=== PATIENT | female | born 1970 | race Caucasian/White ===

== ENCOUNTER → 2016-11-25 | Outpatient (CLI) | payer BC ==
[~2016-11-25] MED LIST: CALC750C21 CHEW; METH500T PO; OXYC1TAB63 PO; PREN1TAB30 PO; Z.0.BCPILL; ZANTTAB PO
== END ==
LOC: HPND 07:47
PROVIDERS: ATTEND Obstetrics & Gynecology
DX: O09.522 Supervision of elderly multigravida, second trimester (principal); O09.812 Supervision of pregnancy resulting from assisted reproductive technology, second trimester; O44.01 Complete placenta previa NOS or without hemorrhage, first trimester; O44.02 Complete placenta previa NOS or without hemorrhage, second trimester; Z3A.22 22 weeks gestation of pregnancy
CPT/HCPCS: 76816; 76817; 76825; 76827; 93325

== ENCOUNTER → 2016-12-23 | Outpatient (CLI) | payer BC | LOC: HPND 07:51 | PROVIDERS: ATTEND Obstetrics & Gynecology | DX: O09.522 Supervision of elderly multigravida, second trimester (principal); O44.02 Complete placenta previa NOS or without hemorrhage, second trimester; O09.812 Supervision of pregnancy resulting from assisted reproductive technology, second trimester | CPT/HCPCS: 76816; 76817 ==

== ENCOUNTER → 2017-01-22 | Outpatient (CLI) | payer BC | LOC: HPND 14:17 | PROVIDERS: ATTEND Obstetrics & Gynecology | DX: O09.522 Supervision of elderly multigravida, second trimester (principal); O10.912 Unspecified pre-existing hypertension complicating pregnancy, second trimester; O09.812 Supervision of pregnancy resulting from assisted reproductive technology, second trimester | CPT/HCPCS: 76816 ==

== ENCOUNTER 2017-02-19 16:14 | Inpatient (IN) | payer BC ==
[2017-03-07] MEDS ORDERED: ZANTTAB PO (11:39)
[2017-03-07] MEDS ORDERED: PREN1TAB30 PO (11:39)
[2017-03-07] MEDS ORDERED: METH500T PO (11:39)
[2017-03-07] MEDS ORDERED: CALC750C21 CHEW (11:40)
[2017-03-19 14:36] VITALS: BP 120/75; PULSE 69; TEMP 97.5
[2017-03-20] MEDS ORDERED: CITRIC ACID-SODIUM CITRATE LIQ 30 ML UDC PO SCH (06:15)
[2017-03-20] MEDS ORDERED: LACTATED RINGER'S 1000 ML IV SCH (06:15)
[2017-03-20] MEDS ORDERED: ceFAZolin 2 GM PREMIX 50 ML IV SCH (06:15)
[2017-03-20] MEDS ORDERED: LACTATED RINGER'S 1000 ML IV ONE (06:15)
[2017-03-20 06:33] VITALS: TEMP 98.1
[2017-03-20 06:34] VITALS: RESP 18
[2017-03-20 06:54] LABS: AUTOMATED NEUTROPHIL # 5.5 TH/MM3 (1.8-7.7); BASOPHIL # 0.1 TH/MM3 (0-0.2); BASOPHIL % 0.7 % (0.0-2.0); EOSINOPHIL # 0.1 TH/MM3 (0-0.4); EOSINOPHIL % 1.2 % (0.0-4.0); HEMATOCRIT 35.9 % (35.0-46.0); HEMO FLAGS DIFF FINAL; LYMPH % 25.3 % (9.0-44.0); LYMPHOCYTE # 2.2 TH/MM3 (1.0-4.8); MEAN CELL VOLUME 90.5 FL (80.0-100.0); MEAN CORPUSCULAR HEMOGLOBIN 31.2 PG (27.0-34.0); MEAN CORPUSCULAR HGB CONC 34.5 % (32.0-36.0); MONO % 8.8 % (0.0-8.0); PLATELET COUNT 263 TH/MM3 (150-450); RED BLOOD COUNT 3.97 MIL/MM3 (4.00-5.30); RED CELL DISTRIBUTION WIDTH 14.3 % (11.6-17.2); WHITE BLOOD COUNT 8.6 TH/MM3 (4.0-11.0)
[2017-03-20] MEDS ORDERED: OXYTOCIN 10 UNIT/ML AMP ONE (07:00)
[2017-03-20] MEDS ORDERED: ONDANSETRON HCL 4 MG/2 ML VIAL ONE (07:12)
[2017-03-20] MEDS ORDERED: MORPHINE SULFATE PF 5 MG/10 ML VIAL ONE (07:12)
[2017-03-20] MEDS ORDERED: ePHEDrine/NS 25 MG/5 ML SYR ONE (07:12)
[2017-03-20] MEDS ORDERED: ACETAMINOPHEN 1000 MG/100 ML VIAL IV ONE (07:13)
--- NOTE | 2017-03-20 07:18 | MH ---
cc: JUSTIN BOLANOS DATE OF ADMISSION: 03/20/2017 ADMISSION DIAGNOSES 1. Term . 2. Advanced terminal age. 3. Status post multiple myomectomies. HISTORY OF PRESENT ILLNESS The patient is a 46-year-old white female para 0-0-2-0 with an EDC of 03/27/2017 by known in vitro fertilization dates. She is now admitted for primary delivery. PAST MEDICAL HISTORY PREVIOUS SURGERY 1. In 1974 she had ureteral implant surgery. 2. She had robotic myomectomy multiple in 2014 by delivery by her infertility specialist. ALLERGIES SULFA. TRANSFUSIONS None. OBSTETRICAL HISTORY Two previous ETPs. SOCIAL HISTORY She is . Works for an [employer]. Alcohol, tobacco and drugs are none. PHYSICAL EXAMINATION GENERAL: A well-nourished, well-developed white female. VITAL SIGNS: Stable. HEENT: Exam is normal. CHEST: Clear. HEART: Regular rate. ABDOMEN: Gravid, nontender. EFW is 3600 grams. PELVIC: Cervix is closed and is normal. Placenta is posterior. ASSESSMENT As above. PLAN She is now admitted for primary . While in the office explained the procedures, the risks, benefits and complications and the patient would like to proceed. MD CARLIN Cameron/SSB /6:55 AM /7:01 AM
[2017-03-20 07:23] LABS: BACTERIA, URINE FEW /hpf; BLOOD, URINE NEG (NEG); COMMENT (UR) CULT NOT INDICATED; CULTURE IF INDICATED CULT NOT INDICATED; GLUCOSE,URINE NEG (NEG); KETONE, URINE NEG (NEG); MUCUS URINE FEW /lpf (OCC); NITRITE,URINE NEG (NEG); SQUAMOUS EPITHELIAL CELL URINE 1 /hpf (0-5); URINE COLOR YELLOW (YELLW/STRAW)
[2017-03-20] MEDS ORDERED: EPIDURAL-DIPHENHYDRAMINE HCL 50 MG CAP PO PRN (07:30)
[2017-03-20] MEDS ORDERED: EPIDURAL-NO SYSTEMIC NARCOTICS PRN (07:30)
[2017-03-20] MEDS ORDERED: EPIDURAL-NALOXONE HCL 0.4 MG/ML AMP IV PRN (07:30)
[2017-03-20] MEDS ORDERED: EPIDURAL-DIPHENHYDRAMINE HCL 50 MG/ML VIAL IV PUSH PRN (07:30)
[2017-03-20] MEDS ORDERED: EPIDURAL-DO NOT ADMINISTER ANTICOAGULANTS PRN (07:30)
[2017-03-20] MEDS ORDERED: ONDANSETRON HCL 4 MG/2 ML VIAL IVP PRN (07:45)
[2017-03-20] MEDS ORDERED: SODIUM CHLORIDE 0.9% FLUSH 10 ML FLUSH IV FLUSH PRN (07:45)
[2017-03-20] MEDS ORDERED: SIMETHICONE 80 MG CHEWABLE TAB PO PRN (07:45)
[2017-03-20] MEDS ORDERED: KETOROLAC TROMETHAMINE 30 MG/ML (IVP) VIAL IV PUSH PRN (07:45)
[2017-03-20] MEDS ORDERED: DOCUSATE SODIUM 50 MG/SENNA 8.6 MG TAB PO PRN (07:45)
[2017-03-20] MEDS ORDERED: KETOROLAC TROMETHAMINE 60 MG/2 ML (IM) VIAL IM PRN (07:45)
[2017-03-20] MEDS ORDERED: oxyCODONE/ACETAMINOPHEN 5 MG/325 MG TAB PO PRN (07:45)
[2017-03-20] MEDS ORDERED: ZOLPIDEM TARTRATE 5 MG TAB PO PRN (07:45)
[2017-03-20] MEDS: ACETAMINOPHEN 1000 MG/100 ML VIAL IV SCH ×2 (08:00→16:20)
[2017-03-20] MEDS ORDERED: SODIUM CHLORIDE 0.9% FLUSH 10 ML FLUSH IV FLUSH SCH (09:00)
[2017-03-20] MEDS ORDERED: SODIUM CHLORIDE 0.9% FLUSH 5 ML FLUSH IV SCH (09:00)
[2017-03-20] MEDS ORDERED: OXYTOCIN 30 UNITS-500ML PREMIX 500 ML IV ONE (09:00)
[2017-03-20] MEDS: METHYLDOPA 500 MG TAB PO SCH (10:00)
[2017-03-20] MEDS ORDERED: MEASLES, MUMPS, RUBELLA VACCINE 0.5 ML VIAL SQ ONE (10:00)
[2017-03-20] MEDS ORDERED: LACTATED RINGER'S 1000 ML INJ 1,000 ML IV SCH (13:04)
[2017-03-20 14:10] VITALS: BP 120/75; PULSE 69; RESP 18; TEMP 97.5
[2017-03-20 17:33] VITALS: BP 120/78; PULSE 68; TEMP 97.6
[2017-03-20 17:35] VITALS: BP 120/78; PULSE 68; RESP 18; TEMP 97.6
[2017-03-20] MEDS ORDERED: OXYTOCIN 30 UNITS-500ML PREMIX 500 ML IV PRN (18:15)
[2017-03-21] MEDS: ACETAMINOPHEN 1000 MG/100 ML VIAL IV SCH (00:33)
[2017-03-21 04:51] LABS: AUTOMATED NEUTROPHIL # 8.4 TH/MM3 (1.8-7.7); BASOPHIL % 0.4 % (0.0-2.0); EOSINOPHIL # 0.1 TH/MM3 (0-0.4); HEMATOCRIT 32.6 % (35.0-46.0); HEMO FLAGS DIFF FINAL; LYMPH % 14.2 % (9.0-44.0); LYMPHOCYTE # 1.5 TH/MM3 (1.0-4.8); MEAN CELL VOLUME 90.3 FL (80.0-100.0); MEAN CORPUSCULAR HEMOGLOBIN 31.2 PG (27.0-34.0); MEAN CORPUSCULAR HGB CONC 34.5 % (32.0-36.0); MONO % 6.9 % (0.0-8.0); NEUT % 77.5 % (16.0-70.0); PLATELET COUNT 215 TH/MM3 (150-450); RED BLOOD COUNT 3.61 MIL/MM3 (4.00-5.30); RED CELL DISTRIBUTION WIDTH 14.1 % (11.6-17.2); WHITE BLOOD COUNT 10.8 TH/MM3 (4.0-11.0)
[2017-03-21 04:59] LABS: BICARBONATE 26.2 MEQ/L (21.0-32.0); POTASSIUM 4.1 MEQ/L (3.5-5.1)
[2017-03-21 07:20] VITALS: BP 134/83; PULSE 74; RESP 16; TEMP 97.9
[2017-03-21] MEDS: oxyCODONE/ACETAMINOPHEN 5 MG/325 MG TAB PO PRN ×3 (08:32→23:08)
[2017-03-21] MEDS: IBUPROFEN 600 MG TAB PO PRN ×3 (08:33→23:08)
[2017-03-21] MEDS: METHYLDOPA 500 MG TAB PO SCH (08:40)
--- NOTE | 2017-03-21 17:39 | MP ---
cc: JUSTIN BOLANOS DATE OF SURGERY 03/20/17 PREOPERATIVE DIAGNOSIS 1. Term 2. Advanced terminal age 46 with via IVF donor egg 3. Chronic hypertension 4. Gestational diabetes 5. Status post multiple myomectomies. POSTOPERATIVE DIAGNOSIS 1. Term 2. Advanced terminal age 46 with via IVF donor egg 3. Chronic hypertension 4. Gestational diabetes 5. Status post multiple myomectomies. 6. Delivered PROCEDURE Primary low transverse section. ANESTHESIA Spinal SURGEON George Bolanos MD ENVIRONMENTAL ENGINEERING TECHNICIAN Eulogio Montes, ESTIMATED BLOOD LOSS About 800 mL FLUIDS About two liters crystalloid. OBJECTIVE FINDINGS Following induction of adequate spinal anesthesia, the patient was prepped and draped supine on the operating table left lateral tilt position usual sterile fashion with the bladder being drained via Rodriguez catheterization. The abdomen was opened through a Pfannenstiel incision using a knife to excise her old scar. The fascia opened transversely, stripped from the muscles. Rectus muscle split in the midline and the peritoneum opened sharply without incident. The bladder flap was taken down sharply, retracted with Shaista blade. The lower uterine segment was incised transversely with a knife extended with blunt dissection with clear fluid. The baby was in LOT position. The vacuum applied to the occiput and gently lift the head through the uterine abdominal wound. Mouth was suctioned, cord clamped and cut and the baby passed to awaiting team. Viable vigorous male, Apgars nine and nine, weight 8 pounds even. Cord blood was sent for typing, placenta sent for donation and the uterine cavity cleaned with laps. Uterus was exteriorized. The wound closed in two layers running suture, first with running locking stitch of 0 Vicryl, second with running imbricating stitch of 0 Vicryl. Inspection of the uterus revealed multiple defects from the previous myomectomy repair. The tubes and ovaries were normal. Some filmy adhesions posteriorly were lysed with the Bovie. Uterus is now placed in cavity. Irrigation performed. No bleeding was evident and the bladder flap was closed with running stitch of 3-0 Vicryl. All lap structures removed. Counts were correct. The anterior peritoneum closed with running stitch of 2-0 Vicryl. The fascia closed with running locking stitch of 0 Vicryl, corner to midline and tied, subcu with running 3-0 Vicryl and the skin with running subcuticular 3-0 Monocryl. Dermabond applied. All counts correct and the patient was awaken and taken to recovery room in stable condition. MD CARLIN Cameron/ /8:20 AM /5:29 PM JUANCHO
[2017-03-22] MEDS: IBUPROFEN 600 MG TAB PO PRN ×3 (05:20→22:20)
[2017-03-22] MEDS: oxyCODONE/ACETAMINOPHEN 5 MG/325 MG TAB PO PRN ×5 (05:20→22:20)
[2017-03-22 08:13] VITALS: BP 150/94; PULSE 76; RESP 16; TEMP 98.4
[2017-03-22] MEDS ORDERED: DIPHTH/TETANUS/ACEL PERTUSSIS (BOOSTER) 0.5 ML VIAL/PFS IM ONE (09:00)
[2017-03-22] MEDS: METHYLDOPA 500 MG TAB PO SCH ×2 (09:36→20:33)
[2017-03-22 15:47] VITALS: BP 144/97
[2017-03-23] MEDS: oxyCODONE/ACETAMINOPHEN 5 MG/325 MG TAB PO PRN ×2 (05:16→09:24)
[2017-03-23] MEDS: IBUPROFEN 600 MG TAB PO PRN (05:16)
[2017-03-23] MEDS ORDERED: OXYC1TAB63 PO (08:23)
[2017-03-23] MEDS ORDERED: METH500T PO (08:23)
--- NOTE | 2017-03-23 08:23 | HHI.DCPOC ---
Discharge Care Plan Report Symptoms to Your Doctor -Temperate above 100.5 degrees -Redness, of incision or excessive or foul smelling drainage -Unusual pain or calf pain -Increased vaginal bleeding -Painful or difficulty urinating -Feelings of extreme sadness or anxiety after 2 weeks Goals to Promote Your Health * To prevent worsening of your condition and complications * To maintain your health at the optimal level Directions to Meet Your Goals Take your medications as prescribed Follow your dietary instruction Follow activity as directed Ensure plenty of rest for recovery Drink fluids for hydration Keep your appointments as scheduled Take your immunizations and boosters as scheduled If your symptoms worsen call your PCP, if no PCP go to Urgent Care Center or Emergency Room Smoking is Dangerous to Your Health. Avoid second hand smoke Call the 24-hour crisis hotline for domestic abuse at Sarkis Guerrero MD March 23, 2017 08:23
[2017-03-23 09:00] VITALS: BP 141/102; PULSE 86; RESP 18; TEMP 98.1
[2017-03-23] MEDS: METHYLDOPA 500 MG TAB PO SCH (09:23)
[2017-03-23 11:49] VITALS: BP 151/98
--- NOTE | 2017-03-24 08:29 | MD ---
cc: JUSTIN BOLANOS ADMISSION DATE: 03/20/2017 DISCHARGE DATE: 03/23/2017 ADMISSION DIAGNOSES 1. Term . 2. Advanced terminal age - 46. 3. Status post multiple myomectomies. 4. Chronic hypertension. 5. Gestational diabetes. DISCHARGE DIAGNOSES 1. Term . 2. Advanced terminal age - 46. 3. Status post multiple myomectomies. 4. Chronic hypertension. 5. Gestational diabetes. 6. Delivered. PROCEDURE Primary low transverse section on 03/20/2017. HISTORY OF PRESENT ILLNESS A 46-year-old white female, para 0-0-2-0, with an EDC of 03/27/2017 with dates known by IVF with a donor egg. Her past medical history is notable for a robotic myomectomy in 2014 necessitating the need for . Serious medical illnesses include chronic hypertension well controlled on Aldomet and gestational diabetes well-controlled with diet. Her course was benign. HOSPITAL COURSE She was admitted for primary on 03/20/2017 of a viable, vigorous male, Apgars 9 and 9, weight 8 pounds even. she did well and was discharged home in excellent condition on 03/23/2017. She was advised NPV, light activity, no driving, return to see me in one week. She will take her vitamins at home and was given a prescription for Aldomet 500 mg p.o. q.12 hours #60, Percocet 5 one to two p.o. q.4 hours p.r.n. pain #60. She was carefully instructed in postoperative wound and circumcision care. She is to call me if any abnormal symptoms. Justin Bolanos MD JAW/SSB /8:30 AM /8:19 AM JUANCHO
== END 2017-03-23 14:38 | disposition home or self-care (01) | DRG 765 ==
LOC: H2EB 03-20 05:53 → EDSTATUS 03-20 07:30 → H1EA 03-20 10:02
PROVIDERS: ADMIT Obstetrics & Gynecology; ATTEND Obstetrics & Gynecology
PROC: 10D00Z1 Extraction of Products of Conception, Low, Open Approach (ICD-10-PCS; principal; 2017-03-20)
DX: O34.29 Maternal care due to uterine scar from other previous surgery (principal); O10.92 Unspecified pre-existing hypertension complicating childbirth; O24.420 Gestational diabetes mellitus in childbirth, diet controlled; Z37.0 Single live birth; Z3A.00 Weeks of gestation of pregnancy not specified
CPT/HCPCS: 59025; 80048; 81001; 85025; 86850; 86900; 86901; 90715; J0131; J0690; J2274; J2405; J2590; J7120

== ENCOUNTER 2017-03-07 10:09 | Observation (INO) | payer BC ==
[2017-03-07] VITALS (13 sets, daily range): BP systolic 114–146; BP diastolic 72–99; PULSE 79–99; RESP 16–18; TEMP 97.8–98.2
[~2017-03-07] VITALS: Ht 147.3 cm; Wt 73.5 kg
[~2017-03-07 10:09] MED LIST changes: -CALC750C21 CHEW; -METH500T PO; -OXYC1TAB63 PO; -PREN1TAB30 PO; -ZANTTAB PO
[2017-03-07] MEDS ORDERED: ZANTTAB PO (11:39)
[2017-03-07] MEDS ORDERED: PREN1TAB30 PO (11:39)
[2017-03-07] MEDS ORDERED: METH500T PO (11:39)
[2017-03-07] MEDS ORDERED: CALC750C21 CHEW (11:40)
[2017-03-07] MEDS ORDERED: SODIUM CHLORIDE FLUSH PRN IV FLUSH (11:45)
[2017-03-07 12:13] LABS: ANION GAP 10 MEQ/L (5-15); AST (GOT) 21 U/L (15-37); BICARBONATE 23.4 MEQ/L (21.0-32.0); BLOOD UREA NITROGEN 9 MG/DL (7-18); CHLORIDE 105 MEQ/L (98-107); GLOMERULAR FILTRATION RATE 98 ML/MIN (>89); POTASSIUM 4.2 MEQ/L (3.5-5.1); SODIUM (NA) 138 MEQ/L (136-145); URIC ACID 4.3 MG/DL (2.6-6.0)
[2017-03-07 12:17] LABS: AUTOMATED NEUTROPHIL # 7.5 TH/MM3 (1.8-7.7); BASOPHIL % 0.3 % (0.0-2.0); EOSINOPHIL # 0.1 TH/MM3 (0-0.4); EOSINOPHIL % 1.1 % (0.0-4.0); HEMATOCRIT 37.5 % (35.0-46.0); HEMO FLAGS DIFF FINAL; LYMPH % 19.9 % (9.0-44.0); LYMPHOCYTE # 2.1 TH/MM3 (1.0-4.8); MEAN CELL VOLUME 90.9 FL (80.0-100.0); MEAN CORPUSCULAR HEMOGLOBIN 31.4 PG (27.0-34.0); MEAN CORPUSCULAR HGB CONC 34.5 % (32.0-36.0); MONO % 8.2 % (0.0-8.0); NEUT % 70.5 % (16.0-70.0); PLATELET COUNT 303 TH/MM3 (150-450); RED BLOOD COUNT 4.13 MIL/MM3 (4.00-5.30); RED CELL DISTRIBUTION WIDTH 13.8 % (11.6-17.2); WHITE BLOOD COUNT 10.7 TH/MM3 (4.0-11.0)
[2017-03-07 12:20] LABS: ALKALINE PHOSPHATASE 110 U/L (45-117); ALT (GPT) 21 U/L (10-53); TOTAL BILIRUBIN ADULT 0.5 MG/DL (0.2-1.0)
[2017-03-07 12:21] LABS: BACTERIA, URINE OCC /hpf; BLOOD, URINE NEG (NEG); COMMENT (UR) CULT NOT INDICATED; CULTURE IF INDICATED CULT NOT INDICATED; GLUCOSE,URINE NEG (NEG); KETONE, URINE NEG (NEG); MUCUS URINE FEW /lpf (OCC); NITRITE,URINE NEG (NEG); SQUAMOUS EPITHELIAL CELL URINE 3 /hpf (0-5); URINE COLOR YELLOW (YELLW/STRAW)
[2017-03-07] MEDS ORDERED: ONDANSETRON ODT 4 MG TAB PO PRN (12:45)
[2017-03-07] MEDS ORDERED: SODIUM CHLORIDE 0.9% FLUSH 10 ML FLUSH IV FLUSH PRN (12:45)
[2017-03-07] MEDS ORDERED: ALUMINUM/MAGNESIUM/SIMETH 30 ML CUP PO PRN (12:45)
[2017-03-07] MEDS ORDERED: ACETAMINOPHEN 325 MG TAB PO PRN (12:45)
[2017-03-07] MEDS ORDERED: ZOLPIDEM TARTRATE 5 MG TAB PO PRN (12:45)
--- NOTE | 2017-03-07 13:09 | MH ---
cc: JUSTIN BOLANOS DATE OF ADMISSION: 03/07/2017 TIME: 12:40 p.m. REASON FOR ADMISSION at 37 weeks with chronic hypertension, possible superimposed preeclampsia, advanced maternal age of 46, previous myomectomies and gestational diabetes. HISTORY OF PRESENT ILLNESS A 46-year-old white female, para 0-0-2-0, had occur with IVF and donor egg with known EDC of 03/27/17. PERTINENT PAST MEDICAL HISTORY In 1975 she had ureteral implant and she had multiple myomectomies robotic. She has a history of hypertension which predates the . ALLERGIES SULFA. TRANSFUSIONS None. OB HISTORY Two previous ETPs. The patient has been stable on Aldomet 500 mg daily until she presented to the office on 03/05/17 with a rise in blood pressure, confirmed the next day and Aldomet dose was increased to 500 b.i.d. She now comes today for evaluation. Her pressure is in the 150/100 range but she admits to being stressed about the hospital evaluation. She has no headaches, visual change or abdominal pain. She has had discomfort in the upper quadrant for two months which appears to be gastrointestinal related and gestational size related. There has been no change in edema. PHYSICAL EXAMINATION VITAL SIGNS: Blood pressure elevated 150/100. HEENT: Exam is normal. CHEST: Clear. HEART: Regular rate. BREASTS: Enlarged due to . ABDOMEN: Gravid, nontender. EXTREMITIES: 1+ edema. NEUROLOGIC: Reflexes 2+ and equal. PELVIC: Deferred. LABORATORY DATA Her CBC and LFTs are normal. ASSESSMENT As above. PLAN She is now admitted for observation, a 24-hour urine and should she worsen proceed with delivery, if stable discharge home and continue testing and evaluation. MD CARLIN Cameron/CLIF /12:41 PM /12:48 PM
[2017-03-07] MEDS: METHYLDOPA 500 MG TAB PO SCH (20:59)
[2017-03-07] MEDS ORDERED: SODIUM CHLORIDE 0.9% FLUSH 10 ML FLUSH IV FLUSH SCH (21:00)
[2017-03-07] MEDS ORDERED: MULTIVIT/MIN/PREN/FOL AC/IRON PRENATAL TAB PO SCH (21:00)
[2017-03-07] MEDS: SODIUM CHLORIDE FLUSH BID IV FLUSH SCH (21:00)
[2017-03-07] MEDS: FERROUS SULFATE 325 MG (65 MG ELEMENTAL IRON) TAB PO SCH (21:00)
[2017-03-08 02:19] VITALS: BP 132/86; PULSE 82
[2017-03-08 02:20] VITALS: RESP 16; TEMP 98.2
[2017-03-08 07:08] VITALS: BP 139/82; PULSE 77
[2017-03-08 07:11] VITALS: RESP 16; TEMP 97.7
[2017-03-08] MEDS: SODIUM CHLORIDE FLUSH BID IV FLUSH SCH (08:54)
[2017-03-08] MEDS: METHYLDOPA 500 MG TAB PO SCH (08:54)
[2017-03-08] MEDS: FERROUS SULFATE 325 MG (65 MG ELEMENTAL IRON) TAB PO SCH (08:54)
[2017-03-08] MEDS ORDERED: MULTIVIT/MIN/PREN/FOL AC/IRON PRENATAL TAB PO SCH (09:00)
[2017-03-08] MEDS ORDERED: DOCUSATE SODIUM 100 MG CAP PO SCH (09:00)
[2017-03-08 10:50] VITALS: BP 144/88; PULSE 83; RESP 16; TEMP 98
== END 2017-03-08 12:13 | disposition home or self-care (01) ==
LOC: HOBED 10:09 → H2EA 12:36
PROVIDERS: ADMIT Obstetrics & Gynecology; ATTEND Obstetrics & Gynecology
DX: O10.913 Unspecified pre-existing hypertension complicating pregnancy, third trimester (principal); O09.813 Supervision of pregnancy resulting from assisted reproductive technology, third trimester; O09.513 Supervision of elderly primigravida, third trimester; O24.419 Gestational diabetes mellitus in pregnancy, unspecified control; Z3A.37 37 weeks gestation of pregnancy; Z88.2 Allergy status to sulfonamides
CPT/HCPCS: 59025; 80053; 81001; 82948; 84157; 84550; 85025; 99284; G0378

== ENCOUNTER → 2017-07-15 | Day surgery (SDC) | payer BC ==
[~2017-07-15] MED LIST changes: +ACETAMINOPHEN 1000 MG/100 ML 100 ML IV ONE; +ACETAMINOPHEN/HYDROcodone 325 MG/5 MG TAB ONE; +BUPIVACAINE/EPINEPHRINE 0.25% 50 ML VIAL ONE; +CALC750C21 CHEW; +KETOROLAC TROMETHAMINE 30 MG/ML (IVP) VIAL IV PUSH ONE; +LACTATED RINGER'S 1000 ML INJ 1,000 ML ONE; +LIDOCAINE 1%/EPINEPHrine 1:200,000 PF SOLN 30 ML VIAL ONE; +METH500T PO; +MIDAZOLAM HCL 2 MG/2 ML VIAL ONE; +MORPHINE SULFATE 4 MG/ML INJ ONE; +ONDANSETRON HCL 4 MG/2 ML VIAL IV PUSH ONE; +OXYC1TAB63 PO; +PREN1TAB30 PO; +PROPOFOL 200 MG/20 ML AMP IV ONE; +VANCOMYCIN 500 MG VIAL ONE; -Z.0.BCPILL; +ZANTTAB PO; +ceFAZolin INJ 1,000 MG VIAL ONE
--- NOTE | 2017-07-16 10:51 | MP ---
cc: RUBIN FERRELL M.D. DATE OF SURGERY 07/15/2017 PROCEDURE Reduction and repair of incarcerated umbilical hernia with mesh. PREOPERATIVE DIAGNOSIS Incarcerated umbilical hernia. POSTOPERATIVE DIAGNOSIS Incarcerated umbilical hernia. ANESTHESIA LMA SURGEON Rubin Ferrell MD ESTIMATED BLOOD LOSS Less than 30 mL FLUIDS 800 mL crystalloid COMPLICATIONS None DRAINS None SPECIMEN None PROCEDURE IN DETAIL The patient was taken to the operating room and placed on the operating table in the supine position. After an adequate level of laryngeal mask anesthesia was instituted, the abdomen was prepped and draped in the usual fashion. Time-out was taken confirming the correct patient, site, and procedure to be performed. A transverse incision was made inferior to the umbilicus and carried down to the fascia. The umbilical skin was dissected free from the surrounding tissues and the patient was noted to have an umbilical hernia. This was slightly complex and omentum was seen adhered to the hernia sac. This was dissected off with electro dissection. When this had been accomplished, excess hernia sac was trimmed away and dissection was carried down to freshen up the fascial edges. The patient was noted to have a fair amount of weakened fascial tissue and was best felt to be repaired with a mesh repair and not primary repair. An 8-cm Ventralex ST mesh was brought up and placed in the subfascial plane. The mesh was fixed at multiple points to the fascia with 0-Prolene suture. The fascial defect was then closed with interrupted #1 Prolene suture. The umbilical skin was then tacked down to the fascia with a 3-0 Vicryl suture. The wound was closed with interrupted 3-0 Vicryl in the skin closed with 5-0 PDS in a running subcuticular fashion. The wound was dressed with 4x4 and Tegaderm. The patient had an abdominal binder applied. She was extubated and taken back to the recovery room in stable condition. She tolerated the procedure well. MD LANCE Hughes/DJWilliam /11:28 PM /10:43 AM
== END | disposition home or self-care (01) ==
LOC: ESDC 09:05
PROVIDERS: ATTEND Surgery Trauma Surgery
DX: K42.0 Umbilical hernia with obstruction, without gangrene (principal)
CPT/HCPCS: 00750; 49587; C1781; J0131; J0690; J1885; J2250; J2270; J2405; J3010; J3370; J7120